=== PATIENT | female | born 1990 | race African-American/Black ===

== ENCOUNTER 2019-02-23 20:52 | Observation (INO) ==
[2019-02-23] MEDS ORDERED: SODIUM CHLORIDE 0.9% 1,000 ML IV STA (22:22)
[2019-02-23] MEDS ORDERED: PROMETHAZINE INJ 12.5 MG in SODIUM CHLORIDE 0.9% 50 ML IV STA (22:23)
[2019-02-23 23:05] LABS: Basophils % 0.3 % (0.0-0.8); Eosinophils % 0.4 % (0.00-10.9); Hematocrit 41.2 VOL% (35.7-47.0); Hemoglobin 13.2 GM/DL (12.0-16.0); Immature Granulocytes % 0.4 %; Immature Granulocytes Absolute 0.04 #; Lymphocytes # 2.8 10*3/uL (1.4-4.0); Lymphocytes % 28.8 % (21.3-54.2); Mean Corpuscular Volume 79.7 FL (87-102); Mean Platelet Volume 10.4 FL (9.6-12.0); Monocytes % 9.9 % (1.7-12.7); Neutrophils % 60.2 % (38.7-73.9); Platelet Count 391 T/CUMM (130-400); Red Blood Count 5.17 MC/CUMM (3.8-5.5); White Blood Count 9.6 T/CUMM (4-12)
[2019-02-23 23:18] LABS: Albumin 3.4 G/DL (3.4-5.0); Bilirubin,Total 0.5 MG/DL (0.2-1.0); Calcium 13.2 MG/DL (8.5-10.1); Osmolality,Calculated 271.8 MOS/KG (273-304); Total Protein 8.5 G/DL (6.4-8.3)
[2019-02-23] MEDS ORDERED: POTASSIUM BICARB EFFERVESCENT 25 MEQ TABLET PO ONE (23:57)
[2019-02-24 00:53] LABS: Apearance,Urine CLOUDY (Clear); Bilirubin,Urine Negative (Negative); Blood, Urine Small mg/dL (Negative); Glucose,Urine (UA) Negative (Negative); Hyaline Casts,Urine 21 /LPF (0-3); Ketones,Urine 20 mg/dL (Negative); Mucus,Urine Many /LPF (Occasional); Nitrite,Urine Negative (Negative); Protein,Urine 100 MG/DL; RBC,Urine 10 /HPF (0-4); Squamous Epithelial Cell,Urine Many /HPF (0-10); Urine Color Amber (Yellow); Urine Specific Gravity 1.019 (1.001-1.035); Urine Urobilinogen < 2.0 EU/DL (0.2-1.0); WBC,Urine 40 /HPF (0-6)
[2019-02-24] MEDS ORDERED: LACTATED RINGERS 250 ML IV ONE (01:26)
[2019-02-24] MEDS ORDERED: ONDANSETRON 4 MG/2 ML VIAL IV PRN (01:26)
[2019-02-24] MEDS ORDERED: LACTATED RINGERS 1,000 ML IV SCH (01:30)
[2019-02-24] MEDS: FAMOTIDINE 20 MG/2 ML VIAL IV SCH ×2 (03:37→12:58)
[2019-02-24] MEDS: SODIUM CHLOR 0.9% KCL 40 MEQ 40 MEQ/1,000 ML BAG IV SCH ×3 (03:41→22:43)
[2019-02-24] MEDS: CLINDAMYCIN INJ 50 ML IV SCH ×4 (03:46→21:00)
[2019-02-24 05:56] LABS: Basophils % 0.4 % (0.0-0.8); Eosinophils % 0.4 % (0.00-10.9); Hemoglobin 11.5 GM/DL (12.0-16.0); Immature Granulocytes % 0.2 %; Immature Granulocytes Absolute 0.02 #; Lymphocytes # 2.7 10*3/uL (1.4-4.0); Lymphocytes % 31.6 % (21.3-54.2); Mean Corpuscular HGB Conc 31.9 GM/DL (32-36); Mean Corpuscular Volume 80.2 FL (87-102); Mean Platelet Volume 10.2 FL (9.6-12.0); Monocytes % 11.7 % (1.7-12.7); Neutrophils % 55.7 % (38.7-73.9); Platelet Count 306 T/CUMM (130-400); Red Blood Count 4.49 MC/CUMM (3.8-5.5); Red Cell Distribution Width 18.9 % (9.3-17.3); White Blood Count 8.4 T/CUMM (4-12)
[2019-02-24 06:22] LABS: Albumin 2.7 G/DL (3.4-5.0); Bilirubin,Total 0.6 MG/DL (0.2-1.0); Calcium 11.9 MG/DL (8.5-10.1); Osmolality,Calculated 275.5 MOS/KG (273-304); Total Protein 6.9 G/DL (6.4-8.3)
[2019-02-24 10:45] LABS: Free T4 (Free Thyroxine) 1.39 NG/DL (0.76-1.46); Thyroid Stimulating Hormone 0.102 uIU/ml (0.358-3.74)
[2019-02-24] MEDS: PROMETHAZINE 25 MG/1 ML VIAL IM PRN ×2 (13:00→22:55)
[2019-02-25] MEDS: CLINDAMYCIN INJ 50 ML IV SCH ×4 (03:15→15:08)
[2019-02-25] MEDS: FAMOTIDINE 20 MG/2 ML VIAL IV SCH ×2 (06:50→13:22)
[2019-02-25] MEDS: PROMETHAZINE 25 MG/1 ML VIAL IM PRN ×2 (12:22→18:02)
[2019-02-25] MEDS: SODIUM CHLOR 0.9% KCL 40 MEQ 40 MEQ/1,000 ML BAG IV SCH ×2 (13:23→21:56)
[2019-02-26] MEDS: CLINDAMYCIN INJ 50 ML IV SCH ×2 (00:04→05:48)
[2019-02-26] MEDS: FAMOTIDINE 20 MG/2 ML VIAL IV SCH (01:43)
[2019-02-26 05:55] LABS: Alanine Aminotransferase 34 U/L (13-56); Alkaline Phosphatase 59 U/L (45-117); Aspartate Amino Transferase 13 U/L (0-37); Bilirubin,Total < 0.39 MG/DL (0.2-1.0); Blood Urea Nitrogen 3 MG/DL (7-18); Calcium 9.8 MG/DL (8.5-10.1); Glucose 82 MG/DL (74-106); Osmolality,Calculated 278.1 MOS/KG (273-304); Total Protein 5.5 G/DL (6.4-8.3)
[2019-02-26 07:27] VITALS: BP 125/75
[2019-02-26] MEDS: SODIUM CHLOR 0.9% KCL 40 MEQ 40 MEQ/1,000 ML BAG IV SCH (08:33)
[2019-03-01 14:46] LABS: Source URINE
== END 2019-02-26 11:00 | disposition home or self-care (01) ==
LOC: N.EDINP 20:52 → N.ED 20:52 → N.OB 02-24 02:20
PROVIDERS: ADMIT Obstetrics & Gynecology; ATTEND Obstetrics & Gynecology

== ENCOUNTER 2019-08-23 23:08 | Inpatient (IN) ==
[2019-08-23 23:59] LABS: Basophils % 0.2 % (0.0-0.8); Eosinophils # 0.2 10*3/uL (0.0-0.87); Eosinophils % 1.9 % (0.00-10.9); Hemoglobin 10.4 GM/DL (12.0-16.0); Immature Granulocytes % 0.4 %; Immature Granulocytes Absolute 0.04 #; Lymphocytes # 2.4 10*3/uL (1.4-4.0); Lymphocytes % 22.1 % (21.3-54.2); Mean Corpuscular HGB Conc 30.6 GM/DL (32-36); Mean Corpuscular Volume 83.5 FL (87-102); Mean Platelet Volume 9.2 FL (9.6-12.0); Monocytes % 1.8 % (1.7-12.7); Neutrophils % 73.6 % (38.7-73.9); Platelet Count 384 T/CUMM (130-400); Red Blood Count 4.07 MC/CUMM (3.8-5.5); Red Cell Distribution Width 17.5 % (9.3-17.3); White Blood Count 10.8 T/CUMM (4-12)
[2019-08-24 00:59] LABS: Albumin 2.8 G/DL (3.4-5.0); Bilirubin,Total 0.6 MG/DL (0.2-1.0); Calcium 9.4 MG/DL (8.5-10.1); Osmolality,Calculated 282.3 MOS/KG (273-304); Total Protein 7.5 G/DL (6.4-8.3)
[2019-08-24] MEDS ORDERED: MORPHINE 4 MG/1 ML VIAL IV STA ×2 (01:09→04:44)
[2019-08-24] MEDS ORDERED: ONDANSETRON 4 MG/2 ML VIAL IV ONE ×2 (01:09→04:44)
[2019-08-24] MEDS ORDERED: SODIUM CHLORIDE 0.9% 1,000 ML IV STA (01:09)
[2019-08-24 03:34] LABS: Apearance,Urine CLEAR (Clear); Bilirubin,Urine Negative (Negative); Blood, Urine Large mg/dL (Negative); Glucose,Urine (UA) Negative (Negative); Ketones,Urine Negative (Negative); Nitrite,Urine Negative (Negative); Protein,Urine Negative; RBC,Urine 743 /HPF (0-4); Squamous Epithelial Cell,Urine Occasional /HPF (0-10); Urine Color Yellow (Yellow); Urine Specific Gravity 1.033 (1.001-1.035); Urine Urobilinogen < 2.0 EU/DL (0.2-1.0); WBC,Urine 78 /HPF (0-6)
[2019-08-24] MEDS ORDERED: TAMSULOSIN 0.4 MG CAPSULE PO ONE (03:40)
[2019-08-24] MEDS ORDERED: LEVOFLOXACIN INJ 500 MG in PREMIX 1 EACH IV STA (03:40)
[2019-08-24] MEDS ORDERED: ACETAMINOPHEN 500 MG TABLET ONE (03:56)
[2019-08-24] MEDS ORDERED: ACETAMINOPHEN 500 MG TABLET PO STA (04:08)
[2019-08-24] MEDS ORDERED: ONDANSETRON 4 MG/2 ML VIAL IV PRN (05:16)
[2019-08-24] MEDS ORDERED: GENTAMICIN 80 MG/2 ML VIAL ONE ×2 (08:00)
[2019-08-24] MEDS: SODIUM CHLORIDE 0.9% 1,000 ML IV SCH ×2 (09:01→17:25)
[2019-08-24] MEDS: MORPHINE 4 MG/1 ML VIAL IV PRN ×2 (10:57→21:10)
[2019-08-24] MEDS: cefTRIAXone 1,000 MG in SYRINGE 1 EACH IV SCH (12:22)
[2019-08-24] MEDS: ACETAMINOPHEN 325 MG TABLET PO PRN ×2 (15:39→20:30)
[2019-08-24] MEDS ORDERED: SEVOFLURANE 1 UNIT/15 MINUTE INH ONE (16:57)
[2019-08-24] MEDS ORDERED: fentaNYL 100 MCG/2 ML VIAL ONE (16:58)
[2019-08-24] MEDS ORDERED: LIDOCAINE 1% 5 ML VIAL ONE (16:59)
[2019-08-24] MEDS ORDERED: MIDAZOLAM 2 MG/2 ML VIAL ONE (16:59)
[2019-08-24] MEDS ORDERED: SUCCINYLCHOLINE 200 MG/10 ML VIAL ONE (16:59)
[2019-08-24] MEDS ORDERED: propofoL 200 MG/20 ML VIAL IV ONE (16:59)
[2019-08-24] MEDS ORDERED: GLYCOPYRROLATE 0.4 MG/2 ML VIAL ONE ×2 (16:59)
[2019-08-24] MEDS ORDERED: ALBUTEROL INHALER 8 GM INH ONE (16:59)
[2019-08-24] MEDS ORDERED: ROCURONIUM 100 MG/10 ML VIAL IV ONE (17:00)
[2019-08-24] MEDS ORDERED: LACTATED RINGERS 1,000 ML IV ONE (17:00)
[2019-08-24] MEDS ORDERED: NEOSTIGMINE 10 MG/10 ML VIAL ONE (17:00)
[2019-08-24] MEDS: FERROUS SULFATE 325 MG TABLET PO SCH (20:25)
[2019-08-25] MEDS: SODIUM CHLORIDE 0.9% 1,000 ML IV SCH ×3 (01:30→18:03)
[2019-08-25] MEDS: MORPHINE 4 MG/1 ML VIAL IV PRN (03:26)
[2019-08-25] MEDS ORDERED: LEVOFLOXACIN INJ 500 MG in PREMIX 1 EACH IV SCH (05:30)
[2019-08-25 05:53] LABS: Basophils # 0.1 10*3/uL (0.0-0.2); Basophils % 0.2 % (0.0-0.8); Eosinophils # 0.1 10*3/uL (0.0-0.87); Eosinophils % 0.5 % (0.00-10.9); Hematocrit 28.6 VOL% (35.7-47.0); Hemoglobin 8.8 GM/DL (12.0-16.0); Immature Granulocytes % 1.1 %; Immature Granulocytes Absolute 0.28 #; Lymphocytes # 1.6 10*3/uL (1.4-4.0); Lymphocytes % 6.2 % (21.3-54.2); Mean Corpuscular HGB Conc 30.8 GM/DL (32-36); Mean Corpuscular Volume 82.7 FL (87-102); Mean Platelet Volume 10.3 FL (9.6-12.0); Platelet Count 214 T/CUMM (130-400); Red Blood Count 3.46 MC/CUMM (3.8-5.5); Red Cell Distribution Width 17.6 % (9.3-17.3); White Blood Count 26.6 T/CUMM (4-12)
[2019-08-25 06:28] LABS: Albumin 1.9 G/DL (3.4-5.0); Bilirubin,Total 0.6 MG/DL (0.2-1.0); Calcium 8.5 MG/DL (8.5-10.1); Osmolality,Calculated 278.3 MOS/KG (273-304)
[2019-08-25 06:31] LABS: Calcium 8.5 MG/DL (8.5-10.1); Osmolality,Calculated 275.4 MOS/KG (273-304)
[2019-08-25 06:54] LABS: Band Neutrophils 1 % (0-10); Lymphocytes 5 % (20-55); Segmented Neutrophils 92 % (50-85); Total Cells Counted 100
[2019-08-25 06:55] LABS: Burr Cells Slight; Hypochromasia 3+; Microcytosis 1+; Platelet Estimate Normal; Polychromasia Slight; Schistocytes Slight
[2019-08-25] MEDS: ACETAMINOPHEN 325 MG TABLET PO PRN (07:45)
[2019-08-25] MEDS: MULTIVITAMIN (PRENATAL) TABLET PO SCH ×2 (07:46→08:01)
[2019-08-25] MEDS: FERROUS SULFATE 325 MG TABLET PO SCH ×3 (07:46→20:54)
[2019-08-25] MEDS ORDERED: TAMSULOSIN 0.4 MG CAPSULE PO SCH (09:00)
[2019-08-25] MEDS: IBUPROFEN 600 MG TABLET PO PRN ×2 (11:55→22:54)
[2019-08-25] MEDS: cefTRIAXone 1,000 MG in SYRINGE 1 EACH IV SCH (11:56)
[2019-08-25] MEDS ORDERED: GENTAMICIN INJ 240 MG in SODIUM CHLORIDE 0.9% 100 ML IV ONE (12:00)
[2019-08-25] MEDS: GENTAMICIN INJ 120 MG in PREMIX 1 EACH IV SCH (20:54)
[2019-08-26] MEDS: SODIUM CHLORIDE 0.9% 1,000 ML IV SCH ×3 (03:08→20:18)
[2019-08-26] MEDS: GENTAMICIN INJ 120 MG in PREMIX 1 EACH IV SCH (04:02)
[2019-08-26 05:16] LABS: Basophils % 0.2 % (0.0-0.8); Eosinophils # 0.4 10*3/uL (0.0-0.87); Eosinophils % 2.7 % (0.00-10.9); Hemoglobin 8.8 GM/DL (12.0-16.0); Immature Granulocytes % 1.1 %; Immature Granulocytes Absolute 0.17 #; Lymphocytes # 1.8 10*3/uL (1.4-4.0); Lymphocytes % 11.4 % (21.3-54.2); Mean Corpuscular HGB Conc 30.3 GM/DL (32-36); Mean Corpuscular Volume 82.6 FL (87-102); Mean Platelet Volume 9.5 FL (9.6-12.0); Monocytes % 3.7 % (1.7-12.7); Neutrophils % 80.9 % (38.7-73.9); Platelet Count 249 T/CUMM (130-400); Red Blood Count 3.51 MC/CUMM (3.8-5.5); Red Cell Distribution Width 17.7 % (9.3-17.3); White Blood Count 15.7 T/CUMM (4-12)
[2019-08-26 05:59] LABS: Calcium 9.4 MG/DL (8.5-10.1); Osmolality,Calculated 280.1 MOS/KG (273-304)
[2019-08-26] MEDS: MULTIVITAMIN (PRENATAL) TABLET PO SCH (08:26)
[2019-08-26] MEDS: FERROUS SULFATE 325 MG TABLET PO SCH ×2 (08:26→21:03)
[2019-08-26] MEDS: guaiFENesin 200 MG/10 ML UDCUP PO PRN ×2 (08:26→16:24)
[2019-08-26] MEDS: IBUPROFEN 600 MG TABLET PO PRN ×3 (08:30→21:13)
[2019-08-26] MEDS ORDERED: cefTRIAXone 2,000 MG in SYRINGE 1 EACH IV SCH (10:00)
[2019-08-26] MEDS: ALBUTEROL 2.5 MG/3 ML NEB RESP TX PRN ×2 (10:40→15:38)
[2019-08-26] MEDS: cefTRIAXone 2,000 MG in SYRINGE 1 EACH IV SCH (12:10)
[2019-08-27] MEDS: SODIUM CHLORIDE 0.9% 1,000 ML IV SCH ×2 (04:18→15:14)
[2019-08-27] MEDS: IBUPROFEN 600 MG TABLET PO PRN ×2 (05:16→12:26)
[2019-08-27 08:36] VITALS: BP 130/74
[2019-08-27] MEDS: cefTRIAXone 2,000 MG in SYRINGE 1 EACH IV SCH (08:42)
[2019-08-27] MEDS: FERROUS SULFATE 325 MG TABLET PO SCH (08:42)
[2019-08-27] MEDS: guaiFENesin 200 MG/10 ML UDCUP PO PRN (08:42)
[2019-08-27] MEDS: MULTIVITAMIN (PRENATAL) TABLET PO SCH ×2 (09:56→11:20)
== END 2019-08-27 15:10 | disposition home or self-care (01) | DRG 463 ==
LOC: N.EDINP 23:08 → N.ED 23:08 → N.2E 08-24 06:18
PROVIDERS: ADMIT Internal Medicine; ATTEND Internal Medicine